=== PATIENT | male | born 1975 | race Caucasian/White ===

== ENCOUNTER 2020-05-08 11:38 | Outpatient (REF) | payer MEDICARE, OTHER, SELFPAY | END 2020-05-08 11:39 | disposition home or self-care (01) | LOC: HO.BBR 11:38 | PROVIDERS: Visit Provider Internal Medicine Gastroenterology | DX: Z13.89 Encounter for screening for other disorder (principal) ==

== ENCOUNTER 2020-05-15 11:33 | Outpatient (REF) | payer OTHER, SELFPAY ==
[2020-05-15 13:52] LABS: Ferritin 473 ng/mL (20-250)
== END 2020-05-15 11:34 | disposition home or self-care (01) ==
LOC: HO.BBR 11:33
PROVIDERS: Visit Provider Internal Medicine Gastroenterology
DX: E83.110 Hereditary hemochromatosis (principal)
CPT/HCPCS: 36415; 82728

== ENCOUNTER 2020-05-26 09:57 | Outpatient (REF) | payer OTHER, SELFPAY ==
[2020-05-26 14:07] LABS: Ferritin 275 ng/mL (20-250)
== END 2020-05-26 09:58 | disposition home or self-care (01) ==
LOC: HO.BBR 09:57
PROVIDERS: Visit Provider Internal Medicine Gastroenterology
DX: E83.110 Hereditary hemochromatosis (principal)
CPT/HCPCS: 36415; 82728; 85014; 85018; 99195

== ENCOUNTER 2020-06-09 10:50 | Outpatient (REF) | payer MEDICARE, OTHER, SELFPAY ==
[2020-06-09 13:42] LABS: Ferritin 134 ng/mL (20-250)
== END 2020-06-09 10:51 | disposition home or self-care (01) ==
LOC: HO.BBR 10:50
PROVIDERS: Visit Provider Internal Medicine Gastroenterology
DX: E83.110 Hereditary hemochromatosis (principal)
CPT/HCPCS: 36415; 82728

== ENCOUNTER 2020-06-21 14:54 | Outpatient (REF) | payer MEDICARE, OTHER, SELFPAY ==
[2020-06-21 16:03] LABS: Ferritin 196 ng/mL (20-250)
== END 2020-06-21 14:55 | disposition home or self-care (01) ==
LOC: HO.BBR 14:54
PROVIDERS: Visit Provider Internal Medicine Gastroenterology
DX: E83.110 Hereditary hemochromatosis (principal); K70.30 Alcoholic cirrhosis of liver without ascites
CPT/HCPCS: 36415; 82728; 85018; 99195

== ENCOUNTER 2020-07-06 10:56 | Outpatient (REF) | payer MEDICARE, OTHER, SELFPAY ==
[2020-07-06 12:18] LABS: Ferritin 64 ng/mL (20-250)
== END 2020-07-06 10:57 | disposition home or self-care (01) ==
LOC: HO.BBR 10:56
PROVIDERS: Visit Provider Internal Medicine Gastroenterology
DX: E83.110 Hereditary hemochromatosis (principal); K70.30 Alcoholic cirrhosis of liver without ascites
CPT/HCPCS: 36415; 82728

== ENCOUNTER 2020-07-20 10:25 | Outpatient (REF) | payer MEDICARE, OTHER, SELFPAY ==
[2020-07-20 12:28] LABS: Ferritin 47 ng/mL (20-250)
== END 2020-07-20 10:26 | disposition home or self-care (01) ==
LOC: HO.BBR 10:25
PROVIDERS: PCP Family Medicine; Visit Provider Internal Medicine Gastroenterology
DX: E83.110 Hereditary hemochromatosis (principal)
CPT/HCPCS: 36415; 82728

== ENCOUNTER 2020-08-03 09:11 | Outpatient (REF) | payer MEDICARE, OTHER, SELFPAY ==
[2020-08-03 11:11] LABS: Ferritin 59 ng/mL (20-250)
== END 2020-08-03 09:12 | disposition home or self-care (01) ==
LOC: HO.BBR 09:11
PROVIDERS: Visit Provider Internal Medicine Gastroenterology
DX: E83.110 Hereditary hemochromatosis (principal); K70.30 Alcoholic cirrhosis of liver without ascites
CPT/HCPCS: 36415; 82728

== ENCOUNTER 2020-09-08 13:54 | Outpatient (REF) | payer OTHER, SELFPAY ==
[2020-09-08 15:22] LABS: Ferritin 293 ng/mL (20-250)
== END 2020-09-08 13:55 | disposition home or self-care (01) ==
LOC: HO.BBR 13:54
PROVIDERS: Visit Provider Internal Medicine Gastroenterology
DX: E83.110 Hereditary hemochromatosis (principal)
CPT/HCPCS: 36415; 82728

== ENCOUNTER 2020-11-01 06:07 | Outpatient (REF) | payer OTHER, SELFPAY ==
[2020-11-01 06:21] LABS: PLT CLUMP 1
[2020-11-01 06:23] LABS: Hematocrit 38.6 % (42-52); Hemoglobin 12.4 g/dl (14.0-18.0); Mean Corpuscular HGB Conc 32.1 g/dl (31.0-36.0); Mean Corpuscular Hemoglobin 29.8 pg (27.0-33.0); Mean Corpuscular Volume 92.8 fL (80-98); Mean Platelet Volume 12.3 fL (9.4-12.4); Platelet Count 100 X10*3/uL (160-400); Red Blood Count 4.16 X10*6/uL (4.60-5.80); Red Cell Distribution Width 21.4 % (11.0-16.0); White Blood Count 5.3 X10*3/uL (4.8-10.8)
[2020-11-01 06:45] LABS: Alanine Aminotransferase 108 U/L (0-40); Albumin Level 2.5 g/dL (3.5-5.0); Alkaline Phosphatase 241 U/L (39-117); Anion Gap 11 (12-20); Aspartate Amino Transferase 106 U/L (5-37); Bilirubin Total 1.9 mg/dL (0.0-1.0); Blood Urea Nitrogen 5 mg/dL (9-16); Calcium 8.4 mg/dL (8.4-10.2); Carbon Dioxide 27 mmol/L (22-29); Chloride 102 mmol/L (96-108); Estimated Glomerular Filt Rate > 60; Glucose Random 212 mg/dL (60-115); Potassium 4.6 mmol/L (3.3-5.1); Sodium 135 mmol/L (135-145)
== END 2020-11-01 06:08 | disposition home or self-care (01) ==
LOC: HO.MMNH1L 06:07
PROVIDERS: Visit Provider Family Medicine
DX: E11.9 Type 2 diabetes mellitus without complications (principal); K21.9 Gastro-esophageal reflux disease without esophagitis; I10 Essential (primary) hypertension
CPT/HCPCS: 36415; 80053; 85027

== ENCOUNTER 2020-11-02 06:14 | Outpatient (REF) | payer OTHER, SELFPAY ==
[2020-11-02 06:33] LABS: Ammonia 35 umol/L (13-55)
== END 2020-11-02 06:15 | disposition home or self-care (01) ==
LOC: HO.MMNH1L 06:14
PROVIDERS: Visit Provider Family Medicine
DX: K70.9 Alcoholic liver disease, unspecified (principal)
CPT/HCPCS: 36415; 82140

== ENCOUNTER 2021-02-09 11:36 | Outpatient (REF) | payer OTHER, SELFPAY ==
[2021-02-09 12:43] LABS: Ferritin 34 ng/mL (20-250)
== END 2021-02-09 11:37 | disposition home or self-care (01) ==
LOC: HO.BBR 11:36
PROVIDERS: Visit Provider Internal Medicine Gastroenterology
DX: K70.30 Alcoholic cirrhosis of liver without ascites (principal); E83.110 Hereditary hemochromatosis
CPT/HCPCS: 36415; 82728

== ENCOUNTER 2021-03-13 09:52 | Outpatient (REF) | payer OTHER, SELFPAY ==
[2021-03-13 10:45] LABS: Ferritin 95 ng/mL (20-250)
== END 2021-03-13 09:53 | disposition home or self-care (01) ==
LOC: HO.BBR 09:52
PROVIDERS: Visit Provider Internal Medicine Gastroenterology
DX: E83.110 Hereditary hemochromatosis (principal); K70.30 Alcoholic cirrhosis of liver without ascites
CPT/HCPCS: 36415; 82728

== ENCOUNTER 2021-04-12 14:35 | Outpatient (REF) | payer MEDICARE, OTHER, SELFPAY ==
[2021-04-12 16:13] LABS: Ferritin 28 ng/mL (20-250)
== END 2021-04-12 14:36 | disposition home or self-care (01) ==
LOC: HO.BBR 14:35
PROVIDERS: Visit Provider Internal Medicine Gastroenterology
DX: E83.110 Hereditary hemochromatosis (principal); K70.30 Alcoholic cirrhosis of liver without ascites
CPT/HCPCS: 36415; 82728

== ENCOUNTER 2021-05-14 08:54 | Outpatient (REF) | payer MEDICARE, OTHER, SELFPAY ==
[2021-05-14 10:41] LABS: Ferritin 25 ng/mL (20-250)
== END 2021-05-14 08:55 | disposition home or self-care (01) ==
LOC: HO.BBR 08:54
PROVIDERS: Visit Provider Internal Medicine Gastroenterology
DX: E83.110 Hereditary hemochromatosis (principal); K70.30 Alcoholic cirrhosis of liver without ascites
CPT/HCPCS: 36415; 82728

== ENCOUNTER 2021-06-13 09:05 | Outpatient (REF) | payer MEDICARE, OTHER, SELFPAY ==
[2021-06-13 12:37] LABS: Ferritin 37 ng/mL (20-250)
== END 2021-06-13 09:06 | disposition home or self-care (01) ==
LOC: HO.BBR 09:05
PROVIDERS: Visit Provider Internal Medicine Gastroenterology
DX: E83.110 Hereditary hemochromatosis (principal); K70.30 Alcoholic cirrhosis of liver without ascites
CPT/HCPCS: 36415; 82728; 85018; 99195

== ENCOUNTER 2021-07-11 09:48 | Outpatient (REF) | payer OTHER, SELFPAY ==
[2021-07-11 11:17] LABS: Ferritin 36 ng/mL (20-250)
== END 2021-07-11 09:49 | disposition home or self-care (01) ==
LOC: HO.BBR 09:48
PROVIDERS: Visit Provider Internal Medicine Gastroenterology
DX: E83.110 Hereditary hemochromatosis (principal); K70.30 Alcoholic cirrhosis of liver without ascites
CPT/HCPCS: 36415; 82728

== ENCOUNTER 2021-08-13 09:53 | Outpatient (REF) | payer MEDICARE, SELFPAY ==
[2021-08-13 11:29] LABS: Ferritin 20 ng/mL (20-250)
== END 2021-08-13 09:54 | disposition home or self-care (01) ==
LOC: HO.BBR 09:53
PROVIDERS: Visit Provider Internal Medicine Gastroenterology
DX: E83.110 Hereditary hemochromatosis (principal); K70.30 Alcoholic cirrhosis of liver without ascites
CPT/HCPCS: 36415; 82728; 85018

== ENCOUNTER 2021-09-14 10:55 | Outpatient (REF) | payer MEDICARE, SELFPAY ==
[2021-09-14 12:20] LABS: Ferritin 28 ng/mL (20-250)
== END 2021-09-14 10:56 | disposition home or self-care (01) ==
LOC: HO.BBR 10:55
PROVIDERS: Visit Provider Internal Medicine Gastroenterology
DX: E83.110 Hereditary hemochromatosis (principal); K70.30 Alcoholic cirrhosis of liver without ascites
CPT/HCPCS: 36415; 82728

== ENCOUNTER 2021-10-18 09:58 | Outpatient (REF) | payer MEDICARE, SELFPAY ==
[2021-10-18 12:11] LABS: Ferritin 30 ng/mL (20-250)
== END 2021-10-18 09:59 | disposition home or self-care (01) ==
LOC: HO.BBR 09:58
PROVIDERS: Visit Provider Internal Medicine Gastroenterology
DX: E83.110 Hereditary hemochromatosis (principal); K70.30 Alcoholic cirrhosis of liver without ascites
CPT/HCPCS: 36415; 82728

== ENCOUNTER 2021-11-19 09:58 | Outpatient (REF) | payer MEDICARE, SELFPAY ==
[2021-11-19 12:38] LABS: Ferritin 19 ng/mL (20-250)
== END 2021-11-19 09:59 | disposition home or self-care (01) ==
LOC: HO.BBR 09:58
PROVIDERS: Visit Provider Internal Medicine Gastroenterology
DX: E83.110 Hereditary hemochromatosis (principal); K70.30 Alcoholic cirrhosis of liver without ascites
CPT/HCPCS: 36415; 82728; 85018; 99195

== ENCOUNTER 2022-01-04 09:58 | Outpatient (REF) | payer MEDICARE, OTHER, SELFPAY ==
[2022-01-04 11:26] LABS: Ferritin 14 ng/mL (20-250)
== END 2022-01-04 09:59 | disposition home or self-care (01) ==
LOC: HO.BBR 09:58
PROVIDERS: Visit Provider Internal Medicine Gastroenterology
DX: E83.110 Hereditary hemochromatosis (principal); K70.30 Alcoholic cirrhosis of liver without ascites
CPT/HCPCS: 36415; 82728

== ENCOUNTER 2022-02-04 10:56 | Outpatient (REF) | payer MEDICARE, SELFPAY ==
[2022-02-04 12:58] LABS: Ferritin 18 ng/mL (20-250)
== END 2022-02-04 10:57 | disposition home or self-care (01) ==
LOC: HO.BBR 10:56
PROVIDERS: Visit Provider Internal Medicine Gastroenterology
DX: E83.110 Hereditary hemochromatosis (principal); K70.30 Alcoholic cirrhosis of liver without ascites
CPT/HCPCS: 36415; 82728

== ENCOUNTER 2022-03-07 09:53 | Outpatient (REF) | payer MEDICARE, OTHER, SELFPAY ==
[2022-03-07 11:27] LABS: Ferritin 11 ng/mL (20-250)
== END 2022-03-07 09:54 | disposition home or self-care (01) ==
LOC: HO.BBR 09:53
PROVIDERS: Visit Provider Internal Medicine Gastroenterology
DX: K70.30 Alcoholic cirrhosis of liver without ascites (principal); E83.110 Hereditary hemochromatosis
CPT/HCPCS: 36415; 82728

== ENCOUNTER 2022-04-10 10:53 | Outpatient (REF) | payer MEDICARE, OTHER, SELFPAY ==
[2022-04-10 12:19] LABS: Ferritin 11 ng/mL (20-250)
== END 2022-04-10 10:54 | disposition home or self-care (01) ==
LOC: HO.BBR 10:53
PROVIDERS: Visit Provider Internal Medicine Gastroenterology
DX: E83.110 Hereditary hemochromatosis (principal)
CPT/HCPCS: 36415; 82728